=== PATIENT | male | born 1950 | race Caucasian/White ===

== ENCOUNTER 2023-11-14 06:45 | Day surgery (SDC) | payer MEDICARE, BC ==
[~2023-11-14] VITALS: Ht 177.8 cm; Wt 110.4 kg
[2023-11-14] VITALS (12 sets, daily range): BP systolic 111–164; BP diastolic 69–94; PULSE 66–76; RESP 13–25; TEMP 98.3; O2SAT 95–97
[2023-11-14] MEDS ORDERED: normal saline 1,000 ML IV SCH (07:05)
[2023-11-14] MEDS ORDERED: sodium bicarbonate 1meq/ml syr 150 ML in dextrose 5%-water 1,000 ML IV SCH (07:05)
[2023-11-14] MEDS ORDERED: diphenhydrAMINE 25mg capsule PO PRN (07:05)
[2023-11-14] MEDS ORDERED: PRE5T PO (07:40)
[2023-11-14] MEDS ORDERED: LEVO125C4 PO (07:40)
[2023-11-14] MEDS ORDERED: METH2.5T55 PO (07:40)
[2023-11-14] MEDS ORDERED: MULT-1085 PO (07:40)
[2023-11-14] MEDS ORDERED: BETA15CR15 TOP (07:40)
[2023-11-14] MEDS ORDERED: CHOL400T57 PO (07:40)
[2023-11-14] MEDS ORDERED: FOLI1TAB27 PO (07:40)
[2023-11-14 07:42] LABS: BASOPHILS % (AUTO) 0.6 % (0-1); EOSINOPHILS # (AUTO) 0.1 X10'3 (0-0.9); EOSINOPHILS % (AUTO) 2.3 % (0-6); HEMATOCRIT 42.6 % (42.0-52.0); HEMOGLOBIN 14.4 g/dl (14.0-17.9); LYMPHOCYTES # (AUTO) 1.4 X10'3 (1.1-4.8); LYMPHOCYTES % (AUTO) 28.3 % (21-51); MEAN CORPUSCULAR HEMOGLOBIN 31.8 PG (27.0-31.0); MEAN CORPUSCULAR HGB CONC 33.7 g/dL (33.0-36.5); MEAN CORPUSCULAR VOLUME 94.3 FL (78-98); MEAN PLATELET VOLUME 7.9 FL (7.4-10.4); MONOCYTES # (AUTO) 0.5 X10'3 (0-0.9); MONOCYTES % (AUTO) 10.8 % (2-12); NEUTROPHILS # (AUTO) 2.9 X10'3 (1.8-7.7); PLATELET COUNT 183 X10'3 (140-440); RED BLOOD COUNT 4.52 X10'6 (4.70-6.10); RED CELL DISTRIBUTION WIDTH 14.7 % (11.5-14.5); WHITE BLOOD COUNT 5.1 X10'3 (4.5-11.0)
[2023-11-14 08:08] LABS: ALBUMIN 3.7 G/DL (3.4-5.0); ANION GAP 10 (8-16); BLOOD UREA NITROGEN 17 MG/DL (7-18); BUN/CREATININE RATIO 15.2 (10.0-20.0); CALCIUM 8.7 MG/DL (8.5-10.1); CHLORIDE 106 MMOL/L (99-107); CREATININE 1.12 MG/DL (0.60-1.10); GLUCOSE 108 MG/DL (70-104); POTASSIUM 4.1 MMOL/L (3.5-5.1); PROTHROMBIN TIME 10.6 SECONDS (9.0-12.0); SODIUM 140 MMOL/L (135-145); TOTAL CARBON DIOXIDE 24.4 MMOL/L (24-32); eCRCL 60 ML/MIN; eGFR 64 ML/MIN
[2023-11-14] MEDS ORDERED: LIDOcaine 1% 30ml preserv. free vial ONE (11:35)
[2023-11-14] MEDS ORDERED: fentaNYL/PF 50MCG/1 ML 2ML syringe ONE (11:35)
[2023-11-14] MEDS ORDERED: iohexol 350MG/ML 100ml bottle IV ONE ×2 (11:35→12:52)
[2023-11-14] MEDS ORDERED: midazolam 1 mg/ML 2ml injection ONE (11:35)
[2023-11-14] MEDS ORDERED: iohexol 350 MG/ML 50ML vial IV ONE (11:35)
[2023-11-14] MEDS ORDERED: heparin 1,000unit/ml 10ml vial 10 ML ONE (11:35)
[2023-11-14] MEDS ORDERED: hydrALAZINE 20mg/ml inj. IV ONE (12:58)
[2023-11-14] MEDS ORDERED: nitroGLYCERIN 500mcg/5mL D5W 5 ML IV ONE (13:06)
[2023-11-14] MEDS ORDERED: proCHLORperazine 10 MG/2 ml inj IV PRN (14:00)
[2023-11-14] MEDS ORDERED: acetaminophen 325mg tablet PO PRN (14:00)
[2023-11-14] MEDS ORDERED: ondansetron/PF 4mg/2ml inj IV PRN (14:00)
[2023-11-14] MEDS ORDERED: HYDROcodone/acetaminophen 10/325mg tab PO PRN (14:00)
[2023-11-14] MEDS ORDERED: HYDROcodone/acetaminophen 5mg/325mg tablet PO PRN (14:00)
[2023-11-17 07:05] LABS: ISTAT HGB MIX 13.3 g/dl (14.0-17.9); ISTAT Hct MIX 39 %PCV (42-52); ISTAT O2 SATURATION MIX VENOUS 69 % (60-80); ISTAT SOURCE BLNK
== END 2023-11-14 18:31 | disposition home or self-care (01) ==
LOC: CATH LAB 06:45
PROVIDERS: ATTEND Internal Medicine Cardiovascular Disease
DX: I35.0 Nonrheumatic aortic (valve) stenosis (principal); I25.10 Atherosclerotic heart disease of native coronary artery without angina pectoris; E03.9 Hypothyroidism, unspecified; E53.8 Deficiency of other specified B group vitamins; M05.70 Rheumatoid arthritis with rheumatoid factor of unspecified site without organ or systems involvement; E78.5 Hyperlipidemia, unspecified; I10 Essential (primary) hypertension; Z79.899 Other long term (current) drug therapy
CPT/HCPCS: 36415; 80048; 82803; 83735; 85014; 85025; 85610; 93005; 93460; 99152; 99153; J0360; J1644; J2250; J3010; J3490; J7030; J7070; Q0163; Q9967; A6258; A6449; C1725; C1751; C1760; C1769; C1894

== ENCOUNTER 2023-12-16 10:30 | Outpatient (CLI) | payer MEDICARE, BC ==
[~2023-12-16 10:30] MED LIST: BETA15CR15 TOP; CHOL400T57 PO; FOLI1TAB27 PO; LEVO125C4 PO; METH2.5T55 PO; MULT-1085 PO; PRE5T PO
[2023-12-16 10:59] LABS: BASOPHILS % (AUTO) 0.3 % (0-1); EOSINOPHILS # (AUTO) 0.1 X10'3 (0-0.9); EOSINOPHILS % (AUTO) 1.3 % (0-6); LYMPHOCYTES # (AUTO) 1.1 X10'3 (1.1-4.8); MEAN CORPUSCULAR HEMOGLOBIN 31.6 PG (27.0-31.0); MEAN CORPUSCULAR HGB CONC 33.3 g/dL (33.0-36.5); MEAN PLATELET VOLUME 7.9 FL (7.4-10.4); MONOCYTES # (AUTO) 0.9 X10'3 (0-0.9); MONOCYTES % (AUTO) 9.6 % (2-12); NEUTROPHILS # (AUTO) 7.1 X10'3 (1.8-7.7); NEUTROPHILS % (AUTO) 76.8 % (42-75); PLATELET COUNT 202 X10'3 (140-440); RED BLOOD COUNT 4.74 X10'6 (4.70-6.10); RED CELL DISTRIBUTION WIDTH 14.9 % (11.5-14.5); WHITE BLOOD COUNT 9.2 X10'3 (4.5-11.0)
[2023-12-16 11:13] LABS: APTT 28 SECONDS (22-32); PROTHROMBIN TIME 11.1 SECONDS (9.0-12.0)
[2023-12-16 11:14] LABS: ALANINE AMINOTRANSFERASE 54 U/L (12-78); ALBUMIN 3.9 G/DL (3.4-5.0); ALBUMIN/GLOBULIN RATIO 1.3 (1.1-1.5); ALKALINE PHOSPHATASE 89 IU/L (46-116); ANION GAP 11 (8-16); ASPARTATE AMINO TRANSFERASE 26 U/L (10-37); BILIRUBIN,TOTAL 0.4 MG/DL (0.1-1.0); BLOOD UREA NITROGEN 22 MG/DL (7-18); BUN/CREATININE RATIO 17.9 (10.0-20.0); CALCIUM 8.8 MG/DL (8.5-10.1); CHLORIDE 108 MMOL/L (99-107); CREATININE 1.23 MG/DL (0.60-1.10); GLUCOSE 127 MG/DL (70-104); POTASSIUM 4.7 MMOL/L (3.5-5.1); SODIUM 144 MMOL/L (135-145); TOTAL CARBON DIOXIDE 25.4 MMOL/L (24-32); eGFR 58 ML/MIN
[2023-12-16] MEDS ORDERED: IODIXANOL 320 MG/ML INFUS..BTL 100ML IV ONE (11:33)
== END 2023-12-16 23:59 | disposition home or self-care (01) ==
LOC: RAD 10:30
PROVIDERS: ATTEND Internal Medicine Cardiovascular Disease
DX: K76.0 Fatty (change of) liver, not elsewhere classified (principal); K80.20 Calculus of gallbladder without cholecystitis without obstruction; I35.0 Nonrheumatic aortic (valve) stenosis; R06.02 Shortness of breath; I65.23 Occlusion and stenosis of bilateral carotid arteries; J92.9 Pleural plaque without asbestos; M47.814 Spondylosis without myelopathy or radiculopathy, thoracic region; M19.012 Primary osteoarthritis, left shoulder
CPT/HCPCS: 36415; 71046; 71275; 74174; 75572; 80053; 85025; 85610; 85730; 93880; J3490; Q9967

== ENCOUNTER 2024-02-05 07:29 | Inpatient (IN) | payer MEDICARE, BC ==
[2024-01-30 14:40] LABS: BILIRUBIN,URINE NEGATIVE (Neg); CLARITY,URINE CLEAR (Clear); COLOR,URINE YELLOW (Yellow); GLUCOSE, URINE NEGATIVE (Neg); KETONES,URINE NEGATIVE (Neg); LEUKOCYTE ESTERASE ,URINE NEGATIVE (Neg); NITRITES, URINE NEGATIVE (Neg); OCCULT BLOOD,URINE NEGATIVE (Neg); PROTEIN,URINE NEGATIVE (Neg); UROBILINOGEN,URINE 0.2 E.U/dL (0.2-1.0)
[2024-01-30 14:41] LABS: BASOPHILS % (AUTO) 0.2 % (0-1); EOSINOPHILS % (AUTO) 0.7 % (0-6); LYMPHOCYTES # (AUTO) 1.1 X10'3 (1.1-4.8); LYMPHOCYTES % (AUTO) 14.4 % (21-51); MEAN CORPUSCULAR HEMOGLOBIN 32.2 PG (27.0-31.0); MEAN CORPUSCULAR VOLUME 94.6 FL (78-98); MEAN PLATELET VOLUME 7.6 FL (7.4-10.4); MONOCYTES # (AUTO) 0.5 X10'3 (0-0.9); MONOCYTES % (AUTO) 7.5 % (2-12); NEUTROPHILS # (AUTO) 5.7 X10'3 (1.8-7.7); NEUTROPHILS % (AUTO) 77.2 % (42-75); PRE OP HEMATOCRIT 44.4 % (42.0-52.0); PRE OP HEMOGLOBIN 15.1 g/dL (14.0-17.9); PRE OP PLATELET COUNT 194 X10'3 (140-440); PRE OP WHITE BLOOD COUNT 7.3 10'3 (4.8-10.8); RED BLOOD COUNT 4.69 X10'6 (4.70-6.10); RED CELL DISTRIBUTION WIDTH 14.7 % (11.5-14.5)
[2024-01-30 14:42] LABS: UA COLLECTION TYPE VOIDED
[2024-01-30 14:54] LABS: PRE OP PROTIME 10.9 SECONDS (9.0-12.0)
[2024-01-30 15:06] LABS: CHLORIDE 106 MMOL/L (99-107); PRE OP GLUCOSE 143 MG/DL (70-104); PRE OP POTASSIUM 4.5 MMOL/L (3.4-5.1); PRE OP SODIUM 138 MMOL/L (135-145); TOTAL CARBON DIOXIDE 24.1 MMOL/L (24-32)
[2024-01-30 15:07] LABS: ALBUMIN 3.7 G/DL (3.4-5.0); ALBUMIN/GLOBULIN RATIO 1.1 (1.1-1.5); ALKALINE PHOSPHATASE 106 IU/L (46-116); BLOOD UREA NITROGEN 17 MG/DL (7-18); BUN/CREATININE RATIO 14.4 (10.0-20.0); CALCIUM 8.9 MG/DL (8.5-10.1); CREATININE 1.18 MG/DL (0.60-1.10); PRE OP ANION GAP 8 (8-16); PRE OP AST 38 U/L (10-37); PRE OP BILIRUB, TOTAL 0.5 MG/DL (0.0-1.0); THYROID STIMULATING HORMONE 1.94 ulU/ml (0.34-4.50); TOTAL PROTEIN 7.2 G/DL (6.4-8.2); eGFR 60 ML/MIN
[2024-01-30 15:15] LABS: PRE OP ALT 81 U/L (30-65)
[2024-02-05] VITALS (27 sets, daily range): BP systolic 126–192; BP diastolic 74–96; PULSE 66–81; RESP 15–20; TEMP 97.7–98.5; O2SAT 93–98
[~2024-02-05] VITALS: Ht 177.8 cm; Wt 105.0 kg
[2024-02-05] MEDS: phenylephrine inj 50 MG in normal saline 250ml IV solN IV SCH (05:30)
[2024-02-05] MEDS: cefazolin 2gm/D5W 100mL 100 ML IV ONE (05:30)
[2024-02-05] MEDS: ringers solution, lacted 1,000 ML IV SCH ×2 (05:30→12:45)
[2024-02-05] MEDS: nitroPRUSSIDE (NIPRIDE) (200MCG/ML) 100ML Drip IV SCH (05:30)
[2024-02-05] MEDS: famotidine 20mg tablet PO ONE (05:30)
[2024-02-05] MEDS: aspirin 325mg tablet PO ONE (05:30)
[2024-02-05] MEDS: vancomycin 1,500 MG in NS 300ml IV soln IV ONE (05:30)
[~2024-02-05 07:29] MED LIST changes: +ATOR40TA72 PO; -BETA15CR15 TOP; +CETI10TA14 PO; -CHOL400T57 PO; +CYAN250010 PO; -MULT-1085 PO; +UBID100C16 PO; +ondansetron/PF 4mg/2ml inj IV PRN
[2024-02-05] MEDS ORDERED: protamine sulfate 10mg/ml inj. ONE (08:38)
[2024-02-05] MEDS ORDERED: LIDOcaine 1%/PF 5ML 10 MG/ML VIAL ONE (11:28)
[2024-02-05] MEDS ORDERED: propofol inj 20 ML IV ONE (11:28)
[2024-02-05] MEDS ORDERED: LIDOcaine 1% 30ml preserv. free vial ONE (11:28)
[2024-02-05] MEDS ORDERED: fentaNYL/PF 50MCG/1 ML 2ML syringe ONE (11:28)
[2024-02-05] MEDS ORDERED: midazolam 1 mg/ML 2ml injection ONE (11:28)
[2024-02-05] MEDS ORDERED: heparin 1,000 UNITS/NS 500ml 1,500 ML ONE (11:28)
[2024-02-05] MEDS ORDERED: iohexol 350MG/ML 100ml bottle IV ONE (11:28)
[2024-02-05] MEDS ORDERED: methylPREDNISolone sod succ 125mg/2ml vial ONE (12:11)
[2024-02-05] MEDS ORDERED: heparin 1,000unit/ml 10ml vial 10 ML ONE (12:20)
[2024-02-05] MEDS ORDERED: proCHLORperazine 10 MG/2 ml inj IV PRN ×2 (12:45→13:25)
[2024-02-05] MEDS ORDERED: morphine 2 MG/ML inj. syringe IV PRN (12:45)
[2024-02-05] MEDS ORDERED: meperidine/PF 25mg/ml syringe IV PRN ×3 (12:45)
[2024-02-05] MEDS ORDERED: ondansetron/PF 4mg/2ml inj IV PRN ×2 (12:45→13:25)
[2024-02-05] MEDS ORDERED: enalaprilat dihydrate 2.5mg/2ml vial IV PRN (12:45)
[2024-02-05] MEDS ORDERED: morphine 4 MG/ML inj SYRINge IV PRN (12:45)
[2024-02-05] MEDS ORDERED: HYDROcodone/acetaminophen 5mg/325mg tablet PO PRN (13:25)
[2024-02-05] MEDS ORDERED: ALPRAZolam 0.25mg tablet PO PRN (13:25)
[2024-02-05] MEDS ORDERED: pantoprazole 40mg Tablet.DR PO PRN (13:25)
[2024-02-05] MEDS ORDERED: docusate sod 100mg capsule PO PRN (13:25)
[2024-02-05] MEDS ORDERED: acetaminophen 325mg tablet PO PRN (13:25)
[2024-02-05] MEDS ORDERED: potassium Cl 40MEQ/270ML bag 250 ML IV PRN (13:25)
[2024-02-05] MEDS ORDERED: potassium CL 10mEq/100ml bag 100 ML IV PRN (13:25)
[2024-02-05] MEDS ORDERED: potassium Cl 40MEQ/1/2NS 520ml 520 ML IV PRN (13:25)
[2024-02-05] MEDS ORDERED: diphenhydrAMINE 25mg capsule PO PRN (13:25)
[2024-02-05] MEDS ORDERED: potassium Cl 20mEq/100mL bag 100 ML IV PRN (13:25)
[2024-02-05] MEDS ORDERED: magnesium 2GM in 50ml NS 50 ML IV PRN (13:25)
[2024-02-05] MEDS ORDERED: magnesium 4gm in 100ml NS 100 ML IV PRN (13:25)
[2024-02-05] MEDS ORDERED: potassium Cl 20 mEq SR tablet PO PRN (13:25)
[2024-02-05] MEDS: hydrALAZINE 20mg/ml inj. IV PRN (14:46)
[2024-02-05] MEDS: labetalol 20mg/4ml (5mg/ml) syringe IV PRN ×2 (16:19→19:51)
[2024-02-05] MEDS: ceFAZolin 1GM/D5W- ADD-VANTAGE 50 ML IV SCH (16:30)
[2024-02-05] MEDS: sod chloride 0.9% 10ml flush syringe IV SCH (16:34)
[2024-02-05] MEDS: normal saline 1000ml 1,000 ML IV SCH (16:34)
[2024-02-05] MEDS: vancomycin/NS 1 GM ADD-VANTAGE 250 ML IV SCH (19:50)
[2024-02-06 02:00] VITALS: BP 149/68; PULSE 65; RESP 16; TEMP 97.6; O2SAT 96
[2024-02-06 06:00] VITALS: BP 106/51; PULSE 59; RESP 20; TEMP 97.4; O2SAT 94
[2024-02-06 07:41] LABS: BASOPHILS % (AUTO) 0 % (0-1); EOSINOPHILS % (AUTO) 0 % (0-6); HEMATOCRIT 42.8 % (42.0-52.0); HEMOGLOBIN 14.1 g/dl (14.0-17.9); LYMPHOCYTES # (AUTO) 0.7 X10'3 (1.1-4.8); LYMPHOCYTES % (AUTO) 3.9 % (21-51); MEAN CORPUSCULAR HEMOGLOBIN 31.1 PG (27.0-31.0); MEAN CORPUSCULAR HGB CONC 32.9 g/dL (33.0-36.5); MEAN CORPUSCULAR VOLUME 94.7 FL (78-98); MEAN PLATELET VOLUME 8.3 FL (7.4-10.4); MONOCYTES # (AUTO) 0.9 X10'3 (0-0.9); MONOCYTES % (AUTO) 5.3 % (2-12); NEUTROPHILS # (AUTO) 16.2 X10'3 (1.8-7.7); NEUTROPHILS % (AUTO) 90.8 % (42-75); PLATELET COUNT 142 X10'3 (140-440); RED BLOOD COUNT 4.52 X10'6 (4.70-6.10); RED CELL DISTRIBUTION WIDTH 14.3 % (11.5-14.5); WHITE BLOOD COUNT 17.9 X10'3 (4.5-11.0)
[2024-02-06 07:55] LABS: ALANINE AMINOTRANSFERASE 69 U/L (12-78); ALBUMIN 3.2 G/DL (3.4-5.0); ALKALINE PHOSPHATASE 86 IU/L (46-116); ANION GAP 13 (8-16); ASPARTATE AMINO TRANSFERASE 34 U/L (10-37); BILIRUBIN,TOTAL 0.7 MG/DL (0.1-1.0); BLOOD UREA NITROGEN 17 MG/DL (7-18); BUN/CREATININE RATIO 15.5 (10.0-20.0); CALCIUM 8.5 MG/DL (8.5-10.1); CHLORIDE 106 MMOL/L (99-107); GLUCOSE 150 MG/DL (70-104); MAGNESIUM 1.9 MG/DL (1.5-2.4); PRO BRAIN NATRIURETIC PEPTIDE 521 PG/ML (0-125); SODIUM 140 MMOL/L (135-145); TOTAL PROTEIN 6.5 G/DL (6.4-8.2); eCRCL 61 ML/MIN; eGFR 65 ML/MIN
[2024-02-06] MEDS: cyanocobalamin 500mcg tablet PO SCH (09:13)
[2024-02-06] MEDS: aspirin 81mg tab.chew PO SCH (09:13)
[2024-02-06] MEDS: cetirizine 10mg tablet PO SCH (09:14)
[2024-02-06] MEDS: folic acid 1mg tablet PO SCH (09:15)
[2024-02-06] MEDS: levoTHYROXINE 125mcg tablet PO SCH (09:15)
[2024-02-06] MEDS: predniSONE 5mg tablet PO SCH (09:15)
[2024-02-06] MEDS: atorvastatin 20mg tablet PO SCH (09:15)
[2024-02-06 11:00] VITALS: BP 125/73; PULSE 71; RESP 20; TEMP 98; O2SAT 94
[2024-02-06] MEDS ORDERED: ASPI-1265 PO (15:12)
[2024-02-11] MEDS ORDERED: methoTREXATE 2.5mg tablet PO SCH (12:25)
== END 2024-02-06 16:32 | disposition home or self-care (01) | DRG 266 ==
LOC: PAS IN 07:29 → PCU 3S 15:11
PROVIDERS: ADMIT Internal Medicine Cardiovascular Disease; ATTEND Internal Medicine Cardiovascular Disease
PROC: B41D1ZZ Fluoroscopy of Aorta and Bilateral Lower Extremity Arteries using Low Osmolar Contrast (ICD-10-PCS; 2024-02-05)
PROC: 03HY32Z Insertion of Monitoring Device into Upper Artery, Percutaneous Approach (ICD-10-PCS; 2024-02-05)
PROC: 02RF38Z Replacement of Aortic Valve with Zooplastic Tissue, Percutaneous Approach (ICD-10-PCS; principal; 2024-02-05 11:48)
DX: I35.0 Nonrheumatic aortic (valve) stenosis (principal); Z00.6 Encounter for examination for normal comparison and control in clinical research program; I50.33 Acute on chronic diastolic (congestive) heart failure; I25.10 Atherosclerotic heart disease of native coronary artery without angina pectoris; I11.0 Hypertensive heart disease with heart failure; M06.9 Rheumatoid arthritis, unspecified; E03.9 Hypothyroidism, unspecified
CPT/HCPCS: 33361; 36415; 71045; 71046; 76937; 80053; 81003; 82948; 83735; 83880; 84443; 85025; 85347; 85610; 85730; 87081; 93005; 93308; A4615; A4618; A6258; A6449; C1756; C1760; C1769; C1894; G0378; J0360; J0690; J1644; J2250; J2370; J2704; J2720; J2930; J3010; J3370; J3490; J7030; J7040; J7050; J7120; J7512; Q9967

== ENCOUNTER 2024-03-05 08:33 | Day surgery (SDC) | payer MEDICARE, BC ==
[~2024-03-05] VITALS: Ht 177.8 cm; Wt 111.8 kg
[~2024-03-05 08:33] MED LIST changes: +ASPI-1265 PO; -ondansetron/PF 4mg/2ml inj IV PRN
[2024-03-05 09:00] VITALS: BP 175/92; PULSE 64; RESP 16; TEMP 98.6; O2SAT 98
[2024-03-05] MEDS ORDERED: ASPI-1265 PO (09:03)
[2024-03-05 09:38] LABS: BASOPHILS % (AUTO) 0.3 % (0-1); EOSINOPHILS # (AUTO) 0.1 X10'3 (0-0.9); HEMATOCRIT 41.9 % (42.0-52.0); HEMOGLOBIN 14.1 g/dl (14.0-17.9); LYMPHOCYTES # (AUTO) 0.9 X10'3 (1.1-4.8); LYMPHOCYTES % (AUTO) 10.5 % (21-51); MEAN CORPUSCULAR HEMOGLOBIN 31.2 PG (27.0-31.0); MEAN CORPUSCULAR HGB CONC 33.7 g/dL (33.0-36.5); MEAN CORPUSCULAR VOLUME 92.8 FL (78-98); MEAN PLATELET VOLUME 8.3 FL (7.4-10.4); MONOCYTES # (AUTO) 0.7 X10'3 (0-0.9); MONOCYTES % (AUTO) 8.3 % (2-12); NEUTROPHILS # (AUTO) 7.1 X10'3 (1.8-7.7); NEUTROPHILS % (AUTO) 79.9 % (42-75); PLATELET COUNT 108 X10'3 (140-440); RED BLOOD COUNT 4.52 X10'6 (4.70-6.10); RED CELL DISTRIBUTION WIDTH 14.4 % (11.5-14.5); WHITE BLOOD COUNT 8.8 X10'3 (4.5-11.0)
[2024-03-05 09:48] LABS: INR 1.1 INR; PROTHROMBIN TIME 11.3 SECONDS (9.0-12.0)
[2024-03-05] MEDS: sodium bicarbonate 1meq/ml syr 150 ML in dextrose 5%-water 1,000 ML IV SCH (10:06)
[2024-03-05] MEDS: normal saline 1,000 ML IV SCH (10:06)
[2024-03-05] MEDS: diphenhydrAMINE 25mg capsule PO PRN (10:06)
[2024-03-05 10:44] LABS: ALBUMIN 3.7 G/DL (3.4-5.0); ANION GAP 5 (8-16); BLOOD UREA NITROGEN 17 MG/DL (7-18); BUN/CREATININE RATIO 17.2 (10.0-20.0); CALCIUM 8.8 MG/DL (8.5-10.1); CHLORIDE 107 MMOL/L (99-107); CREATININE 0.99 MG/DL (0.60-1.10); GLUCOSE 131 MG/DL (70-104); MAGNESIUM 1.9 MG/DL (1.5-2.4); POTASSIUM 4.1 MMOL/L (3.5-5.1); SODIUM 138 MMOL/L (135-145); eCRCL 68 ML/MIN; eGFR 74 ML/MIN
== END 2024-03-05 10:45 | disposition home or self-care (01) ==
LOC: SSTAY O 08:33
PROVIDERS: ATTEND Internal Medicine Cardiovascular Disease
DX: I25.10 Atherosclerotic heart disease of native coronary artery without angina pectoris (principal); Z53.8 Procedure and treatment not carried out for other reasons; I10 Essential (primary) hypertension; E03.9 Hypothyroidism, unspecified; M06.9 Rheumatoid arthritis, unspecified; Z79.890 Hormone replacement therapy; Z79.899 Other long term (current) drug therapy
CPT/HCPCS: 36415; 80048; 83735; 85025; 85610; 93005; J3490; J7030; J7070; Q0163

== ENCOUNTER 2024-03-12 08:45 | Day surgery (SDC) | payer MEDICARE, BC ==
[~2024-03-12] VITALS: Ht 177.8 cm; Wt 112.6 kg
[2024-03-12] VITALS (10 sets, daily range): BP systolic 121–185; BP diastolic 83–102; PULSE 56–74; RESP 14–18; TEMP 97.8; O2SAT 94–97
[~2024-03-12 08:45] MED LIST changes: -CETI10TA14 PO
[2024-03-12] MEDS ORDERED: CETI10TA14 PO (09:15)
[2024-03-12] MEDS ORDERED: LOSA25TA41 PO (09:15)
[2024-03-12 09:36] LABS: BASOPHILS % (AUTO) 0.3 % (0-1); EOSINOPHILS # (AUTO) 0.1 X10'3 (0-0.9); EOSINOPHILS % (AUTO) 0.7 % (0-6); HEMATOCRIT 41.7 % (42.0-52.0); HEMOGLOBIN 14.2 g/dl (14.0-17.9); LYMPHOCYTES # (AUTO) 0.8 X10'3 (1.1-4.8); LYMPHOCYTES % (AUTO) 9.4 % (21-51); MEAN CORPUSCULAR HEMOGLOBIN 31.6 PG (27.0-31.0); MEAN CORPUSCULAR HGB CONC 34.1 g/dL (33.0-36.5); MEAN CORPUSCULAR VOLUME 92.6 FL (78-98); MONOCYTES # (AUTO) 0.6 X10'3 (0-0.9); MONOCYTES % (AUTO) 7.7 % (2-12); NEUTROPHILS # (AUTO) 6.8 X10'3 (1.8-7.7); NEUTROPHILS % (AUTO) 81.9 % (42-75); PLATELET COUNT 115 X10'3 (140-440); RED BLOOD COUNT 4.51 X10'6 (4.70-6.10); RED CELL DISTRIBUTION WIDTH 14.4 % (11.5-14.5); WHITE BLOOD COUNT 8.3 X10'3 (4.5-11.0)
[2024-03-12 09:48] LABS: PROTHROMBIN TIME 11.1 SECONDS (9.0-12.0)
[2024-03-12] MEDS: sodium bicarbonate 1meq/ml syr 150 ML in dextrose 5%-water 1,000 ML IV ONE (09:51)
[2024-03-12] MEDS: normal saline 1,000 ML IV ONE (09:51)
[2024-03-12 10:04] LABS: ALBUMIN 3.7 G/DL (3.4-5.0); ANION GAP 8 (8-16); BLOOD UREA NITROGEN 18 MG/DL (7-18); BUN/CREATININE RATIO 17.1 (10.0-20.0); CALCIUM 8.8 MG/DL (8.5-10.1); CHLORIDE 104 MMOL/L (99-107); CREATININE 1.05 MG/DL (0.60-1.10); GLUCOSE 180 MG/DL (70-104); MAGNESIUM 2.1 MG/DL (1.5-2.4); POTASSIUM 4.2 MMOL/L (3.5-5.1); SODIUM 135 MMOL/L (135-145); TOTAL CARBON DIOXIDE 23.3 MMOL/L (24-32); eCRCL 64 ML/MIN; eGFR 69 ML/MIN
[2024-03-12] MEDS ORDERED: LIDOcaine 1% 30ml preserv. free vial ONE (11:11)
[2024-03-12] MEDS ORDERED: fentaNYL/PF 50MCG/1 ML 2ML syringe ONE (11:11)
[2024-03-12] MEDS ORDERED: midazolam 1 mg/ML 2ml injection ONE ×2 (11:11→11:59)
[2024-03-12] MEDS ORDERED: heparin 1,000unit/ml 10ml vial 10 ML ONE (11:12)
[2024-03-12] MEDS ORDERED: iohexol 350MG/ML 100ml bottle IV ONE (11:12)
[2024-03-12] MEDS ORDERED: iohexol 350 MG/ML 50ML vial IV ONE (11:12)
[2024-03-12] MEDS: diphenhydrAMINE 25mg capsule PO PRN (11:15)
[2024-03-12] MEDS: LORazepam 0.5 MG tablet PO PRN (11:15)
[2024-03-12] MEDS ORDERED: nitroGLYCERIN 500mcg/5mL D5W 5 ML IV ONE (12:16)
[2024-03-12] MEDS ORDERED: amiodarone 50MG/ML inj IV ONE (12:19)
[2024-03-12] MEDS ORDERED: atropine 0.1mg/ml 10ml syringe ONE (12:43)
[2024-03-12] MEDS ORDERED: ticagrelor 90mg tablet ONE (13:04)
[2024-03-12] MEDS ORDERED: proCHLORperazine 10 MG/2 ml inj IV PRN (13:50)
[2024-03-12] MEDS ORDERED: OXAZEpam 15mg capsule PO PRN (13:50)
[2024-03-12] MEDS ORDERED: HYDROcodone/acetaminophen 10/325mg tab PO PRN (13:50)
[2024-03-12] MEDS ORDERED: ondansetron/PF 4mg/2ml inj IV PRN (13:50)
[2024-03-12] MEDS ORDERED: HYDROcodone/acetaminophen 5mg/325mg tablet PO PRN (13:50)
== END 2024-03-12 17:00 | disposition home or self-care (01) ==
LOC: SSTAY O 08:45
PROVIDERS: ATTEND Internal Medicine Cardiovascular Disease
DX: I25.10 Atherosclerotic heart disease of native coronary artery without angina pectoris (principal); I10 Essential (primary) hypertension; E03.9 Hypothyroidism, unspecified; M06.9 Rheumatoid arthritis, unspecified; Z79.890 Hormone replacement therapy; Z79.899 Other long term (current) drug therapy
CPT/HCPCS: 36415; 80048; 83735; 85025; 85610; 93005; 93454; 99152; 99153; C1874; C9600; C9601; J0282; J0461; J1644; J2250; J3010; J3490; J7030; J7070; Q0163; Q9967; A6258; C1725; C1751; C1760; C1769; C1894